=== PATIENT | male | born 1980 | race Caucasian/White ===

== ENCOUNTER 2024-01-21 09:38 | Outpatient (CLI) | payer OTHER, SELFPAY ==
--- NOTE | 2024-01-21 10:06 | W.ANESCHARGE ---
Anesthesia Charges Start Date/Time Anesthesia Start Date: 01/21/24 Anesthesia Start Time: 10:16 Stop Date/Time Anesthesia Stop Date: 01/21/24 Anesthesia Stop Time: 10:52
--- NOTE | 2024-01-21 12:32 | W.ANESCHARGE ---
Anesthesia Charges Start Date/Time Anesthesia Start Date: 01/21/24 Anesthesia Start Time: 10:16 Stop Date/Time Anesthesia Stop Date: 01/21/24 Anesthesia Stop Time: 10:52
== END 2024-01-21 09:39 | disposition home or self-care (01) ==
PROVIDERS: PCP Nurse Practitioner Family; Visit Provider Surgery
DX: Z12.11 Encounter for screening for malignant neoplasm of colon (principal); K63.5 Polyp of colon; Z80.0 Family history of malignant neoplasm of digestive organs
CPT/HCPCS: 00811; 45385; 88305; J2704